=== PATIENT | male | born 1950 | race Caucasian/White ===

== ENCOUNTER → 2017-11-03 | Day surgery (SDC) | payer OTHER, MEDICARE ==
--- NOTE | 2017-10-25 11:02 | PAT Medication Instructions ---
Service Date October 25, 2017. Current Home Medication List Allopurinol (Zyloprim), 300 MG PO QPM Aspirin (Aspirin Ec), 81 MG PO QPM Digoxin (Digoxin), 0.125 MG PO QPM Furosemide (Lasix), 40 MG PO QAM Levothyroxine Sodium (Levothyroxine Sodium), 1 TAB PO QPM Metoprolol Succ (Toprol Xl) (Toprol-Xl ), 100 MG PO QPM Potassium Ext Rel (Klor-Con), 20 MEQ PO QPM Probiotic Product (Probiotic), 1 TAB PO QPM Simvastatin (Zocor), 80 MG PO QPM Warfarin Sod (Jantoven), 1.5-3 MG PO QPM Medication Instructions For Your Scheduled Surgery - Check with your corrosion control engineer for instructions for: Warfarin Sod (Jantoven), 1.5-3 MG PO QPM - Hold the following medications the morning of surgery: Furosemide (Lasix), 40 MG PO QAM - Take the following medications as scheduled the night before surgery: Allopurinol (Zyloprim), 300 MG PO QPM Aspirin (Aspirin Ec), 81 MG PO QPM Digoxin (Digoxin), 0.125 MG PO QPM Levothyroxine Sodium (Levothyroxine Sodium), 1 TAB PO QPM Metoprolol Succ (Toprol Xl) (Toprol-Xl ), 100 MG PO QPM Potassium Ext Rel (Klor-Con), 20 MEQ PO QPM Probiotic Product (Probiotic), 1 TAB PO QPM Simvastatin (Zocor), 80 MG PO QPM *NOTHING TO EAT OR DRINK AFTER MIDNIGHT If you have any questions please call us at [phone] or [phone] or [phone]
[2017-10-25 12:46] LABS: BASO % 0.8 %; BASO ABS # 0.07 K/uL (0-0.2); EOS % 8.3 %; HEMATOCRIT 42.7 % (42-52); HEMOGLOBIN 13.9 g/dL (14.0-18.0); IG# 0.02 K/uL (0.00-0.02); LYMPH % 15.5 %; LYMPH ABS # 1.31 K/uL (1.2-3.4); MEAN CELL VOLUME 88.4 fL (80-100); MEAN CORPUSCULAR HEMOGLOBIN 28.8 pg (25-34); MEAN CORPUSCULAR HGB CONC 32.6 g/dl (32-36); MEAN PLATELET VOLUME 9.6 fL (7.4-10.4); MONO % 7.6 %; MONO ABS # 0.64 K/uL (0.11-0.59); NEUT % 67.6 %; NEUT ABS # 5.69 K/uL (1.4-6.5); PLATELET COUNT 191 K/uL (130-400); WHITE BLOOD COUNT 8.43 K/uL (4.8-10.8)
[2017-10-25 12:53] LABS: CALCIUM 8.9 mg/dl (8.5-10.1); CREATININE 1.4 mg/dl (0.60-1.40); POTASSIUM 3.4 mmol/L (3.5-5.1)
--- NOTE | 2017-11-02 18:33 | History and Physical ---
History & Physical Date November 02, 2017. Chief Complaint sinus headaches, drainage History of Present Illness The patient is a 67 year old male with complaints of chronic sinusitis, polyposis. Additional History Hepatic Disease: No Endocrine Disorder: No Kidney Disease: No Hypertension: Yes Heart Disease: Yes Bleeding Tendencies: No Infectious Diseases: No Allergies Coded Allergies: Penicillins (Verified Allergy, Unknown, ANAPHYLAXIS, 10/25/17) Home Medications Scheduled Allopurinol (Zyloprim), 300 MG PO QPM Aspirin (Aspirin Ec), 81 MG PO QPM Digoxin (Digoxin), 0.125 MG PO QPM Furosemide (Lasix), 40 MG PO QAM Levothyroxine Sodium (Levothyroxine Sodium), 1 TAB PO QPM Metoprolol Succ (Toprol Xl) (Toprol-Xl ), 100 MG PO QPM Potassium Ext Rel (Klor-Con), 20 MEQ PO QPM Probiotic Product (Probiotic), 1 TAB PO QPM Simvastatin (Zocor), 80 MG PO QPM Warfarin Sod (Jantoven), 1.5-3 MG PO QPM Physical Examination Skin: warm/dry, no rash Eyes: normal inspection, EOMI, sclerae normal ENT: + pertinent finding (polyposis) Head: normocephalic, atraumatic Neck: supple, no adenopathy, trachea midline Respiratory/Chest: lungs clear, normal breath sounds, no respiratory distress Cardiovascular: regular rate, rhythm, no edema, no murmur Abdomen / GI: normal bowel sounds, non tender Back: normal inspection Extremities: normal inspection, normal range of motion Diagnosis chronic sinusitis, polyposis Plan of Treatment endoscopic sinus surgery
[~2017-11-03] VITALS: Ht 172.7 cm; Wt 90.4 kg
[~2017-11-03] MED LIST: ALLO300T2 PO; ASPI81TA28 PO; ATROPINE SULFATE 0.1 MG/ML 5ML SYR IV PRN; BACITRACIN OINT 15 GM TUBE ONE; CEFAZOLIN 2000MG IV PUSH 15 ML IV SCH; CLINDAMYCIN 600 MG/54 ML D5W IV ONE; DEXAMETHASONE SOD INJ 4 MG/ML VIAL ONE; EpHEDrine SULFATE INJ 50 MG/ML AMP IV PRN; EpINEphrine INJ 1MG/ML AMP 1 MG/ML AMP ONE; FENTANYL CITRATE INJ 50 MCG/1 ML 2 ML VIAL IV PRN; FENTANYL CITRATE INJ 50 MCG/1 ML 2 ML VIAL ONE; FURO40TA3 PO; GLYCOPYRROLATE INJ 0.2 MG/ML VIAL ONE; HEMADERM ENT APPLICATOR KIT TOP ONE; LACTATED RINGER'S 1000ML 1,000 ML IV SCH; LEVO112T4 PO; LIDO 2%/EPINEPHRINE 1:100000 20 ML VIAL ONE; LIDOCAINE 4% INH SOLN 4 ML BTL ONE; LIDOCAINE HCL 2% 2 ML VIAL (20MG/ML) ONE; LNX125 PO; METO100T44 PO; MIDAZOLAM HCL 1 MG/ML 2ML VIAL ONE; MISCCAP80 PO; MUPIROCIN 2% OINT 22 GM TUBE ONE; NEOSTIGMINE METHYLSULFATE 5 MG/5 ML SYR ONE; ONDANSETRON INJ 2 MG/ML 2 ML VIAL IV PRN; ONDANSETRON INJ 2 MG/ML 2 ML VIAL ONE; OXYC-57 PO; OXYCODONE/ACETAMINOPHEN 5-325 TAB PO PRN; PHENYLEPHRINE HCL INJ 10 MG/ML VIAL ONE; POTA-639 PO; PROPOFOL IV EMULSION 10 MG/ML 20 ML VIAL ONE; ROCURONIUM BROMIDE 10 MG/ML 5 ML VIAL ONE; SIMV80TA2 PO; SODIUM CHLORIDE 0.9% 1000ML 1,000 ML IV SCH; SUCCINYLCHOLINE CHLORIDE 20 MG/ML 10 ML VIAL IV ONE; TRIAMCINOLONE ACET 40 MG/ML VIAL ONE; WARF3TAB6 PO; [UNRECOGNIZED DRUG - REMARK] SCH
[2017-11-03 05:48] VITALS: BP 172/104; PULSE 72; TEMP 36.7; O2SAT 97; Ht 172.7 cm; Wt 90.4 kg
[2017-11-03 06:07] LABS: INR 1.4 (0.9-1.1); PTT PATIENT 32.7 SECONDS (21.0-31.0)
--- NOTE | 2017-11-03 07:14 | History & Physical Bridge Note ---
H&P Re-Evaluation Bridge Note: I have examined the patient, reviewed the History & Physical and in the interval since the performance of the History & Physical I have noted the following changes of clinical significance: No changes noted
[2017-11-03] MEDS: GELATIN SPONGE 12-7MM ONE ×2 (08:50→08:53)
--- NOTE | 2017-11-03 09:21 | [facility] Post Operative Brief Note ---
Immediate Operative Summary Operative Date November 03, 2017. Pre-Operative Diagnosis Chronic Sinusitis; Polyposis Post-Operative Diagnosis Chronic Sinusitis; Polyposis Procedure(s) Performed Right/LeftFrontal sinus; Right/left Sphenoid sinuses; Right/Left Total Ethnoid sinuses; Right/Left Maxillary sinuses Surgeon Dr. Fink Soda Dispenser Surgeon(s) none Estimated Blood Loss 100mL Findings Consistent with Post-Op Diagnosis Specimens A: Left Ethnoid Tissue Drains None Anesthesia Type General Disposition Accompanied Pt To Recover: yes Disposition: Recovery Room / PACU Overlapping Procedure I was immediately available: during the entire case
--- NOTE | 2017-11-03 09:25 | Discharge Instructions ---
Discharge Instructions Date of Service November 03, 2017. Admission Reason for Admission: Chronic Sinusitis, Polyposis Discharge Discharge Diagnosis / Problem: same Discharge Goals Goal(s): Therapeutic intervention Activity Recommendations Activity Limitations: per Instructions/Follow-up section . Instructions / Follow-Up Instructions / Follow-Up ACTIVITY RECOMMENDATIONS: * Being up and around is good, but no strenuous activity, heavy lifting or physical exertion for one week. * Keep your head elevated 30 degrees when lying down or sleeping. * Do not blow your nose for 48 hours, sniff back instead. * Avoid hot showers. OVER THE COUNTER MEDICATIONS: * You may use Tylenol * Avoid aspirin or aspirin containing products, e.g. as they may increase bleeding. SPECIAL CARE INSTRUCTIONS: * Expect to have bloody drainage from your nose and/or down your throat for one to three days. Change drip pad as needed. * Begin irrigating your nose with saline solution today, at least six to ten times per day and sniff back to help remove old clots or crust. * You may experience nasal and facial congestion, pain and pressure, this is normal. * Please call with any significant and/or progressive pain, redness, swelling around the eyes, visual changes, fever of 101.5 degrees F, active bleeding or any problems or concerns. * If active bleeding occurs, spray the nose three times at one minute intervals with Afrin spray and call or cell phone: . If unable to reach the doctor, go to the nearest Emergency Department. Special Diet: * Avoid extremely hot fluids. FOLLOW UP VISIT: Follow-up Visit with Dr. Fink If not already scheduled, please call to schedule. Current Hospital Diet Patient's current hospital diet: Discharge Diet Recommended Diet: Regular Diet Procedures Procedures Performed: Right/LeftFrontal sinus; Right/left Sphenoid sinuses; Right/Left Total Ethnoid sinuses; Right/Left Maxillary sinuses Pending Studies Studies pending at discharge: no Medical Emergencies . Who to Call and When: Medical Emergencies: If at any time you feel your situation is an emergency, please call 911 immediately. . Non-Emergent Contact Non-Emergency issues call your: Primary Care Provider . "Provider Documentation" section prepared by Laura Fink. . [place] Drug Monitoring Program Search Results: no issues identified
--- NOTE | 2017-11-03 09:57 | Anesthesia Progress Nt - [facility] ---
Anesthesia Post Op Note Date & Time November 03, 2017 at 09:57 Vital Signs Pain Intensity: 0 Vital Signs Past 12 Hours Date Time Temp Pulse Resp B/P (MAP) Pulse Ox O2 Delivery O2 Flow Rate FiO2 11/03/17 09:45 36.4 70 17 155/89 (104) 94 Nasal Cannula 2 11/03/17 09:31 65 13 97 11/03/17 09:31 71 13 11/03/17 09:30 156/89 11/03/17 09:26 72 13 11/03/17 09:26 70 13 97 11/03/17 09:25 165/95 11/03/17 09:21 82 13 11/03/17 09:21 79 13 97 11/03/17 09:20 155/100 11/03/17 09:17 36.0 82 18 174/93 (108) 98 Oxymask 10 11/03/17 09:17 174/93 11/03/17 09:16 97 31 97 11/03/17 09:16 88 31 11/03/17 05:48 36.7 72 18 172/104 (126) 97 Room Air Notes Mental Status: alert / awake / arousable, participated in evaluation Pt Amnestic to Procedure: Yes Nausea / Vomiting: adequately controlled Pain: adequately controlled Airway Patency, RR, SpO2: stable & adequate BP & HR: stable & adequate Hydration State: stable & adequate Anesthetic Complications: no major complications apparent
[2017-11-03 10:05] VITALS: BP 165/87; PULSE 70; TEMP 36.6; O2SAT 95
--- NOTE | 2017-11-03 10:50 | OPERATIVE REPORT ---
DATE OF OPERATION: 11/03/2017 PREOPERATIVE DIAGNOSIS: Chronic sinusitis and polyposis. POSTOPERATIVE DIAGNOSIS: Chronic sinusitis and polyposis. PROCEDURE: Right and left frontal sinusotomy, right and left total ethmoidectomy, right and left sphenoidotomy and right and left maxillary sinus antrostomies. SURGEON: Laura Fink MD. ANESTHESIA: General endotracheal. COMPLICATIONS: None. BLOOD LOSS: 100 mL. HISTORY: This 67-year-old gentleman presented with long history of recurrent and chronic sinusitis. He had endoscopic sinus surgery by in 20 years ago, again developed polyposis. Conservative medical management was unsuccessful. DESCRIPTION OF PROCEDURE: The patient brought to the operating room and placed in the supine position. General endotracheal anesthesia was induced and he was prepped and draped in the usual sterile manner. The [employer] device calibrated and used for the entire procedure. The nose was decongested using topical cottonoids with a solution of 4 mL of 4% Xylocaine mixed with no epinephrine. Injection of 1% Xylocaine was also used. The [employer] device was used to guide the guidewire into the left nasofrontal duct. The balloon was used to dilate the left nasofrontal duct and then the guidewire was left in place as a marker for frontal sinusotomy. The shaver coupled with the [employer] lab device was used to remove the residual anterior wall and posterior wall of the agger nasi cell and also some residual supraethmoidal air cells along with multiple polyps in this manner opening up the nasofrontal duct following the guidewire superiorly, removing the posterior wall of the agger nasi cell but leaving the remainder of the mucosa in the nasofrontal duct intact. At this point, total ethmoidectomy was performed removing adhesions and scar tissue and osteitis delineating the posterior most ethmoid air cell and removing multiple polyps. The sphenoid was found using the pointer and opened by removing polypoid tissue at the anterior face of the sphenoid at the inferior border of the superior turbinate and then opening up the sphenoid ostia to a wide opening using the shaver. Maxillary sinus was opened by removing polypoid tissue over the wide antrostomy from the previous procedure. In this manner, the left frontal sinusotomy, sphenoidotomy, total ethmoidectomy, and maxillary sinus antrostomy was completed. The right frontal sinusotomy, total ethmoidectomy and maxillary sinus antrostomy and sphenoidotomy was performed in a similar manner again removing multiple polyps, again removing the residual anterior and posterior wall of the agger nasi cell and again removing the residual supraethmoidal air cells and then adhesions and polyps blocking the posterior ethmoid air cells. The right sphenoid was also opened with the shaver to approximately a 6 mm opening, removing polypoid tissue from the right sphenoid. Contours stents were placed in the nasofrontal duct and Propel stents in the middle meatus area and HemaDerm powder was used for hemostasis. The patient tolerated the procedure well and was taken to the recovery area in satisfactory condition. I attest to the content of the Intraoperative Record and any orders documented therein. Any exception s are noted below.
== END | disposition home or self-care (01) ==
LOC: C.ACU 04:46
PROVIDERS: ATTEND Otolaryngology
DX: J32.9 Chronic sinusitis, unspecified (principal); J33.8 Other polyp of sinus; Z88.0 Allergy status to penicillin